=== PATIENT | female | born 1960 | race Caucasian/White ===

== ENCOUNTER 2021-01-28 06:25 | Day surgery (SDC) | payer OTHER ==
[~2021-01-28] VITALS: Ht 165.1 cm; Wt 65.5 kg
[~2021-01-28 06:25] MED LIST: ADULT LOW DOSE81 MG PO; PAXIL10 MG PO; SULFAZINE500 MG PO
--- NOTE | 2021-01-28 08:00 | NUR ---
01/28/21 0800 Beatris Parrish 0755- PT TO PACU IN LL POSITION. EYES CLOSED. OPENS EYES TO VERBAL AND TACTILE STIMULI. BREATHING EASY AND UNLABORED. SPO2 >95% ON 3 L O2 VIA NASAL CANULA. PT FALLS QUICKLY BACK TO SLEEP.
--- NOTE | 2021-01-29 07:59 | OR ---
[facility] [address] [place], [place] [address] Signed DATE OF OPERATION: 01/28/2021 SURGEON: Sony Pino MD PREOPERATIVE DIAGNOSIS: Ulcerative colitis in 2005. POSTOPERATIVE DIAGNOSIS: A 3 mm polyp at 6 cm. PROCEDURE: Colonoscopy with cold biopsies at 90, 60, 30, 25, and 6 cm. ESTIMATED BLOOD LOSS: None. FINDINGS: No visible evidence of any ulcerative colitis. INDICATIONS: Jesus is a 60-year-old female, who I first met in 2005. She had two years of diarrhea with guaiac-positive stool. 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 She has been following with her insurance loss control surveyor Dr. Romero. She has done very well with sulfasalazine. A repeat colonoscopy in [address] Romero showed the ulcerative colitis markedly improved. He also describes a redundant colon. She was asked to follow up every five years. She has done well in the past with Versed and fentanyl as well as Versed and Demerol. Dr. Romero has since retired, therefore Jesus followed up with me in 2016 for followup colonoscopy. The biopsies came back unremarkable. Again, she continues on her sulfasalazine. However, she took an enormous amount of Versed and fentanyl and was still awake and moving during the procedure. We had planned to use monitored anesthesia care on this occasion, somehow that was overlooked. She told me no one else in her family has ulcerative colitis. No family history of colon cancer or polyps. She currently has no lower GI complaints. She does follow along with her public health registrar on a regular basis. I did encourage her to re-establish with a insurance loss control surveyor given her diagnosis and the extra-intestinal manifestations ulcerative colitis and so forth. However, we had a change in gastroenterologists in our area and that has been difficult for her. Therefore, she asked if I would help her for another colonoscopy on this occasion. In the office, I gave her a pamphlet on colonoscopy. Of course, she understands the test quite well. There is risk including, but not limited to gas bloating, crampy abdominal pain, bleeding, perforation requiring Electronically Signed By: SONY PINO MD 01/29/21 0759 PATIENT NAME: JESUS LARA OPERATIVE REPORT DATE OF : 60 REPORT #: [id number] PHYSICIAN: SONY PINO MD PCP: CHARIS LEACH PAC REPORT IS CONFIDENTIAL AND NOT TO BE RELEASED WITHOUT AUTHORIZATION [address] [address] Signed surgery, and missed diagnosis. We also reviewed the need for the IV conscious sedation. She told me she had no recollection of her last endoscopy. She had expressed understanding and wished to proceed. DESCRIPTION OF PROCEDURE: Jesus was taken into our endoscopy suite and placed in the left lateral decubitus position. She was given a total of 8 mg of Versed and 150 mcg of fentanyl on this occasion. We had done a digital rectal exam and this was unremarkable. The adult colonoscope had been introduced and advanced under direct visualization of the camera. Again, her rectum and colon are visibly unremarkable. She does have a long redundant colon. The scope was buckling as we went. She frequently awake and talking to us during the procedure. We took multiple breaks in the colonoscopy to give additional Versed and fentanyl. We did use abdominal compression. We did place her in the supine position as well. We can see that her baseline heart rate in the mid 40s. However, her heart rate was dropping down into the mid 20s and she was diaphoretic. We made it up past the splenic flexure and out into the transverse colon. We think we were in the proximal transverse colon. We never constantly saw hepatic flexure nor the right colon. Again, her prep was quite excellent. We decided it was not safe to advance the scope any further. We then withdrew the scope. We took random biopsies as described above. We also took out the very small 3 mm hyperplastic appearing polyp at 6 cm. We had retroflexed the scope in the rectum and everything was healthy down around the anus. Again, we took pictures throughout for photodocumentation. After this, the gas was suctioned out. The colonoscope removed. Jesus was then taken into recovery room in stable condition. RECOMMENDATIONS: I will see Jesus back in my office in 7 to 14 days to review her results. I took the opportunity to call her , [place] on the telephone. He told me several years ago they almost lost her during a varicose vein procedure, apparently she needed CPR. I wonder if that was not for bradycardia. I explained her , she will need monitored anesthesia care for all future procedures, he agreed in that regard. Sony Pino MD ALB/TERESAL /[id number] Electronically Signed By: SONY PINO MD 01/29/21 0759 PATIENT NAME: JESUS LARA OPERATIVE REPORT DATE OF : 60 REPORT #: [id number] PHYSICIAN: SONY PINO MD PCP: CHARIS LEACH REPORT IS CONFIDENTIAL AND NOT TO BE RELEASED WITHOUT AUTHORIZATION [address] [place], [place] [address] Signed cc: Sony Pino MD PATIENT CHART Charis Leach PA-C Copies: SONY PINO MD, ERIKA PAC ~ Electronically Signed By: SONY PINO MD 01/29/21 0759 PATIENT NAME: JESUS LARA OPERATIVE REPORT DATE OF : 60 REPORT #: [id number] PHYSICIAN: SONY PINO MD PCP: CHARIS LEACH REPORT IS CONFIDENTIAL AND NOT TO BE RELEASED WITHOUT AUTHORIZATION
--- NOTE | 2021-01-29 17:42 | PATH ---
[facility] [address] [facility] [place], [place] [address] Signed SPECIMEN(S): A RECTAL POLYP AT 6 CM SPECIMEN(S): B COLON POLYP AT 90 CM SPECIMEN(S): C COLON POLYP AT 60 CM SPECIMEN(S): D COLON POLYP AT 30 CM SPECIMEN(S): E COLON POLYP AT 25 CM SPECIMEN SOURCE: A. RECTAL POLYP AT 6 CM B. COLON POLYP AT 90 CM C. COLON POLYP AT 60 CM D. COLON POLYP AT 30 CM E. COLON POLYP AT 25 CM CLINICAL HISTORY: Colonoscopy. History of ulcerative colitis. MICROSCOPIC DESCRIPTION: Histologic sections of all submitted blocks are examined by light microscopy. These findings, together with the gross examination, support the pathologic diagnosis. FINAL PATHOLOGIC DIAGNOSIS: A. Rectum, 6 cm, polypectomy: - Hyperplastic polyp. - There is no evidence of dysplasia or malignancy. B. Colon, 90 cm, polypectomy: - No significant histopathology. - There is no evidence of neoplasia. C. Colon, 60 cm, polypectomy: - No significant histopathology. - There is no evidence of neoplasia. D. Colon, 30 cm, polypectomy: - Leiomyoma. E. Colon, 25 cm, polypectomy: - No significant histopathology. - There is no evidence of neoplasia. COMMENT: Regarding specimens B, C: The sections from the specimen are architecturally normal without crypt distortion. There is no acute or chronic inflammation. There are no abnormal infiltrates. There is no evidence of inflammatory, hyperplastic or adenomatous polyps. PATIENT NAME: CAITY LARA PATHOLOGY DATE OF : 60 REPORT #: [id number] PHYSICIAN: CLAIRE CHATMAN PCP: RODOLFO BERG PAC REPORT IS CONFIDENTIAL AND NOT TO BE RELEASED WITHOUT AUTHORIZATION [facility] [address] [place], [place] [address] Signed Regarding specimen D: The biopsy contains a small, benign leiomyoma arising in the muscularis mucosae. There is no evidence of dysplasia or malignancy. Regarding specimen E: COMMENT: The sections from the specimen are architecturally normal without crypt distortion. There is no acute or chronic inflammation. There are no abnormal infiltrates. There is no evidence of inflammatory, hyperplastic or adenomatous polyps. TWK:cml:C2NR GROSS DESCRIPTION: Five specimens are received in five containers, labeled "LG." A. The specimen, labeled "LG, 1," and designated on the requisition "rectal polyp at 6 cm," is received in formalin and consists of one woodruff soft tissue fragment that measures 0.3 cm in greatest dimension. The specimen is entirely submitted in cassette (A1). B. The specimen, labeled "LG, 2," and designated on the requisition "colon polyp at 90 cm," is received in formalin and consists of one woodruff soft tissue fragment that measures 0.3 cm in greatest dimension. The specimen is entirely submitted in cassette (B1). C. The specimen, labeled "LG, 3," and designated on the requisition "colon polyp at 60 cm," is received in formalin and consists of one woodruff soft tissue fragment that measures 0.3 cm in greatest dimension. The specimen is entirely submitted in cassette (C1). D. The specimen, labeled "LG, 4," and designated on the requisition "colon polyp at 30 cm," is received in formalin and consists of one woodruff soft tissue fragment that measures 0.3 cm in greatest dimension. The specimen is entirely submitted in cassette (D1). E. The specimen, labeled "LG, 5," and designated on the requisition "colon polyp at 25 cm," is received in formalin and consists of one woodruff soft tissue fragment that measures 0.2 cm in greatest dimension. The specimen is entirely submitted in cassette (E1). AT (under the direct supervision of a pathologist) The Gross Description was prepared using a voice recognition system. The report was reviewed for accuracy; however, sound-alike word errors, addition and/or deletions may occur. If there is any question about this report, please contact Client Services. PERFORMING LABORATORY: The technical component was performed by [employer] [address] ([employer] Electrical: Toña Schneider MD; CLIA# [id number]). Professional interpretation was performed by [employer] [facility], [address] [address] (CLIA# PATIENT NAME: CAITY LARA PATHOLOGY DATE OF : 60 REPORT #: [id number] PHYSICIAN: CLAIRE CHATMAN PCP: RODOLFO BERG PAC REPORT IS CONFIDENTIAL AND NOT TO BE RELEASED WITHOUT AUTHORIZATION [facility] [address] [place], [place] [address] Signed [id number]). Diagnostician: Mike Romano MD Pathologist Electronically Signed 01/29/2021 Copies: ~ PATIENT NAME: CAITY LARA PATHOLOGY DATE OF : 60 REPORT #: [id number] PHYSICIAN: CLAIRE PATHOLOGY PCP: RODOLFO BERG PAC REPORT IS CONFIDENTIAL AND NOT TO BE RELEASED WITHOUT AUTHORIZATION
== END 2021-01-28 08:50 | disposition home or self-care (01) ==
LOC: OPS 06:25 → DS 06:25 → OPS 06:45
PROVIDERS: ATTEND Colon & Rectal Surgery
PROC: 0DBL8ZX Excision of Transverse Colon, Via Natural or Artificial Opening Endoscopic, Diagnostic (ICD-10-PCS; 2021-01-28)
PROC: 0DBP8ZX Excision of Rectum, Via Natural or Artificial Opening Endoscopic, Diagnostic (ICD-10-PCS; principal; 2021-01-28 06:45)
DX: K63.5 Polyp of colon (principal); K62.1 Rectal polyp; K51.90 Ulcerative colitis, unspecified, without complications; Q43.8 Other specified congenital malformations of intestine
CPT/HCPCS: 99153; G0500; J2250; J3010; J7121